=== PATIENT | female | born 1945 | race Caucasian/White ===

== ENCOUNTER 2017-03-19 13:49 | Emergency (ER) | payer MEDICARE, OTHER ==
--- NOTE | ~2017-03-19 | CR253 ---
[facility]. [facility] A Service of [facility] RADIOLOGY TEXT RESULTS PATIENT: NELLIE ANDREWS LOCATION: SED : 41 UNIT #: [id number] AGE: [address]: Rayray Edouard MD SEX: F ORDER DR: [id number] [address] [address] [id number] MR#: [id number] Acc #: [id number] NAME: NELLIE ANDREWS : 1945 SEX: F STUDY DATE/TIME: 03/19/2017 14:08 UNIT: SED ROOM: STUDY DESCRIPTION: CR Tibia and Fibula 2 Views Rt Attending Physician: Rayray Edouard M.D. Ordering Physician: Rayray Edouard M.D. Primary Care Physician: Kelly Blake M.D. MEDICAL IMAGING REPORT This report is preliminary unless electronic signature is present. EXAM Right tibia and fibula HISTORY Anterior proximal tibial and fibular pain after falling 1 week ago. TECHNIQUE 4 views of the tibia and fibula were obtained. FINDINGS Knee prosthesis appears in satisfactory alignment position. There is a small lytic focus in the proximal tibia with well-demarcated margins. It is located centrally. The appearance is nonspecific. It measures approximately 1 x 1.5 cm and there is no evidence of cortical expansion, erosion or periosteal reaction. There are also some minimal patchy lytic changes seen in the distal tibia. This can be seen with multiple myeloma. A benign bone cyst or even a small chronic infection could have a similar appearance. No acute bony abnormalities are seen. No evidence of fracture or foreign body. IMPRESSION No acute findings. However, there is a lytic lesion in the proximal tibia at the junction of the proximal middle thirds with fairly well-demarcated margins but no sclerotic margins. It is not a clearly benign process and measures about 1 x 1.5 cm. There is questionable patchy lytic change in the distal tibia as well. This is concerning for either metastatic disease or multiple myeloma. It could also represent chronic infection or a benign cyst. Dictated by... Oswald Wayne M.D. [facility] A Service of [facility] & [facility] RADIOLOGY TEXT RESULTS PATIENT: NELLIE ANDREWS LOCATION: SED : 43 UNIT #: [id number] AGE: [address]: Rayray Edouard MD SEX: F ORDER DR: THIS IS AN ELECTRONICALLY VERIFIED REPORT Oswald Wayne M.D. at 03/24/2017 4:52 PM RLF/pcl TD: 03/19/2017 20:55 JOB #: [id number] MEDICAL IMAGING REPORT Page 1 of 1
[~2017-03-19 13:49] MED LIST: ANASPAZ; ARTHROTEC 751 TAB.EC PO; ATENOLOL PO; CERTAGEN PO; COLACE PO; DIAZIDE PO; DIOVAN160 MG PO; DITROPAN PO; GLUCOPHAGE XR500 MG PO; JANUVIA PO; KLONOPIN PO; LAMISIL PO; LOPID600 MG PO; LYRICA PO; LYRICA75 MG; MACROBID100 MG PO; MELOXICAM15 MG PO; METHADOSE5 MG PO; NEXIUM PO; QUINAM PO; SIMVASTATIN40 MG; TRENTAL400 MG PO; TYLENOL #3 PO; VITAMIN D 4001 UDTAB PO; WELCHOL625 MG PO; ZOCOR PO
[2017-03-19] MEDS ORDERED: JANUVIA100 MG PO (14:14)
[2017-03-19] MEDS ORDERED: LYRICA75 MG PO ×2 (14:14→14:22)
[2017-03-19] MEDS ORDERED: NEXIUM PO (14:14)
[2017-03-19] MEDS ORDERED: PRAVASTATIN SOD40 MG PO (14:15)
[2017-03-19] MEDS ORDERED: OXAYDO7.5 MG PO (14:18)
[2017-03-19] MEDS ORDERED: VITAMIN D (14:20)
[2017-03-19] MEDS ORDERED: VALIUM10 MG PO (14:21)
[2017-03-19] MEDS ORDERED: LIDODERM1 EACH (14:22)
[2017-03-19] MEDS ORDERED: [UNRECOGNIZED DRUG - OTHER] PO (14:23)
[2017-03-19] MEDS ORDERED: FLONASE 0.05% N16 G1 (14:24)
== END 2017-03-19 14:45 | disposition home or self-care (01) ==
LOC: SED 13:49
DX: S80.11XA Contusion of right lower leg, initial encounter (principal); I10 Essential (primary) hypertension; W22.8XXA Striking against or struck by other objects, initial encounter; Y92.009 Unspecified place in unspecified non-institutional (private) residence as the place of occurrence of the external cause
CPT/HCPCS: 73590; 99283